=== PATIENT | female | born 1965 | race Caucasian/White ===

== ENCOUNTER 2020-12-14 13:19 | Emergency (ER) | payer MEDICARE ==
[~2020-12-14 13:19] MED LIST: Iopamidol-370 76% 500 ML 1 ML ONE
[2020-12-14 14:06] LABS: #Eosinphils 0.3 thou/uL (0.0-0.7); #Lymphocytes 2.1 thou/uL (1.20-3.40); #Monocytes 0.6 thou/uL (0.11-0.59); #Neutrophils 12.7 thou/uL (1.40-6.50); %Basophils 0.1 % (0.0-1.0); %Eosinophils 1.9 % (0.0-10.0); %Lymphocytes 13.6 % (21.0-51.0); %Monocytes 3.9 % (0.0-10.0); %Neutrophils 80.5 % (42.0-75.0); Hemoglobin 14.5 g/dL (12.0-16.0); Mean Corpuscular HGB CONC 33.6 g/dL (32.0-36.0); Mean Corpuscular Hemoglobin 31.8 pg (27.0-31.0); Mean Corpuscular Volume 94.9 fL (78.0-98.0); Platelet Count 301 thou/uL (130-400); RBC Distribution Width 13.6 % (11.5-14.5); Red Blood Cell (RBC) Count 4.54 mill/uL (4.20-5.40); White Blood Cell (WBC) Count 15.8 thou/uL (4.8-10.8)
[2020-12-14 14:24] LABS: Anion Gap 14 mmol/L (10-20); BUN (Urea Nitrogen) 13 mg/dL (9.8-20.1); Calc. Creatinine Clearance 0 mL/min (70-130); Calcium 9.3 mg/dL (7.8-10.44); Carbon Dioxide 24 mmol/L (22-29); Chloride 106 mmol/L (98-107); Glucose 164 mg/dL (70-105); Potassium 4.1 mmol/L (3.5-5.1); Sodium 140 mmol/L (136-145)
[2020-12-14 15:53] LABS: Bacteria/HPF None Seen HPF (None Seen); Bilirubin Negative (Negative); Blood, Urine Negative (Negative); Clarity Clear (Clear); Glucose, Urine (Dipstick) Normal (Negative); Ketone, Urine 10 mg/dL (Negative); Leukocyte 25 Leu/uL (Negative); Nitrite Negative (Negative); Pregnancy Test - Urine (BHCG) Negative (Negative); Pregu Control Background? CLEAR/WHITE (CLR/WHITE); Pregu Control Bar Appear? YES (CONTROL BAR); Protein, Urine (Dipstick) 10 mg/dL (Neg-Trace); RBC/HPF 0-3 HPF (0-3); Specific Gravity 1.021 (1.002-1.036); Specific Gravity, Urine 1.021 (1.002-1.036); Squamous Epithelial 0-3 HPF (0-3); Urobilinogen Normal mg/dL (Less than 2); pH, Urine 5.5 (5.0-9.0)
[2020-12-14] MEDS ORDERED: Morphine 4 MG/ML VIAL ONE (16:30)
[2020-12-14] MEDS ORDERED: Ciprofloxacin 500 MG TAB ONE (16:31)
[2020-12-14] MEDS ORDERED: Ketorolac Tromethamine 30 MG/ML VIAL ONE (16:31)
[2020-12-14] MEDS ORDERED: metroNIDAZOLE 500 MG/100 ML BAG ONE (16:31)
== END 2020-12-14 18:02 | disposition home or self-care (01) ==
LOC: ERS 13:19
DX: N20.1 Calculus of ureter (principal); I50.9 Heart failure, unspecified; E11.9 Type 2 diabetes mellitus without complications; Z79.84 Long term (current) use of oral hypoglycemic drugs; Z79.899 Other long term (current) drug therapy
CPT/HCPCS: 36415; 74177; 80048; 81003; 81015; 81025; 83690; 85025; 96365; 96375; J1885; J2270; Q9967

== ENCOUNTER 2025-03-05 18:09 | Observation (INO) | payer MEDICARE ==
[2025-03-05 18:51] VITALS: BMI 46.0
[2025-03-05] MEDS ORDERED: Dextrose 50% Abboject 50 ML SYRINGE SLOW IVP PRN (19:06)
[2025-03-05] MEDS ORDERED: Glucagon 1 MG/ML KIT IM PRN (19:06)
[2025-03-05] MEDS ORDERED: Nitroglycerin 0.4 MG TAB 1 EACH SL PRN (19:41)
[2025-03-05] MEDS: Sacubitril 49 MG/Valsartan 51 MG TABLET PO SCH (21:07)
[2025-03-05] MEDS: Carvedilol 6.25 MG TAB PO SCH (21:08)
[2025-03-05 21:36] LABS: Hematocrit 40.7 % (36.0-47.0); Hemoglobin 13.0 g/dL (12.0-16.0); Platelet Count 291 10x3/uL (130-400)
[2025-03-05] MEDS: Heparin 10,000 UNITS/ 10 ML VIAL SLOW IVP SCH (22:16)
[2025-03-06 04:36] LABS: #Basophils 0.05 10x3/uL (0.0-0.2); #Eosinophils 0.33 10x3/uL (0.0-0.7); #Monocytes 0.65 10x3/uL (0.11-0.59); #Neutrophils 5.84 10x3/uL (1.40-6.50); %Basophils 0.5 % (0.0-1.0); %Eosinophils 3.2 % (0.0-10.0); %Lymphocytes 32.7 % (21.0-51.0); %Monocytes 6.3 % (0.0-10.0); %Neutrophils 57.0 % (42.0-75.0); Hematocrit 39.7 % (36.0-47.0); Hemoglobin 12.7 g/dL (12.0-16.0); Mean Corpuscular Hemoglobin 32.0 pg (27.0-31.0); Mean Corpuscular Volume 100.0 fL (78.0-98.0); Platelet Count 274 10x3/uL (130-400); Red Blood Cell (RBC) Count 3.97 mill/uL (4.20-5.40); White Blood Cell (WBC) Count 10.26 10x3/uL (4.8-10.8)
[2025-03-06 04:55] LABS: ALT (SGPT) 15 U/L (Less than 34); AST (SGOT) 22 U/L (11-34); Albumin 3.4 g/dL (3.1-4.5); Alkaline Phosphatase 83 U/L (40-110); Anion Gap 16 mmol/L (10-20); BUN (Urea Nitrogen) 14 mg/dL (9.8-20.1); Bilirubin, Total 0.4 mg/dL (0.3-1.2); Calc. Creatinine Clearance 109 mL/min (70-130); Calcium 9.0 mg/dL (7.8-10.44); Carbon Dioxide 26 mmol/L (22-29); Cardiac Risk 4.8 (Less than 4.5); Chloride 103 mmol/L (98-107); Cholesterol 188 mg/dl (< 200 Desired); Globulin 3.0 g/dL (2.4-3.5); Glucose 280 mg/dL (70-105); HDL Cholesterol 39 mg/dL (>60 Neg Risk); Potassium 3.9 mmol/L (3.5-5.1); Sodium 141 mmol/L (136-145); Triglycerides 432 mg/dL (Less than 150)
[2025-03-06] MEDS: Aspirin 325 MG TAB PO SCH (08:38)
[2025-03-06] MEDS: Rosuvastatin 20 MG TAB PO SCH (08:38)
[2025-03-06] MEDS: Ezetimibe 10 MG TAB PO SCH (08:38)
[2025-03-06] MEDS: Pantoprazole 40 MG DR.TAB PO SCH (08:38)
[2025-03-06] MEDS ORDERED: Communication Order-Pharmacy FS SCH (10:15)
[2025-03-06] MEDS ORDERED: Adenosine 6 mg (2 mL) VIAL ONE (10:51)
[2025-03-06] MEDS ORDERED: PHENYLEPHRINE-NS 100 MCG/ML 10 ML SYRINGE ONE (10:52)
[2025-03-06] MEDS ORDERED: EPINEPHrine 1 MG/10 ML Abboject SYRINGE ONE (10:52)
[2025-03-06] MEDS ORDERED: Nitroglycerin 50 MG/250 ML BOT 0 ML ONE (10:52)
[2025-03-06] MEDS ORDERED: Lidocaine 1% (PF) 30 ML VIAL ONE (10:54)
[2025-03-06] MEDS ORDERED: Furosemide 20 MG TAB PO PRN (11:24)
[2025-03-06] MEDS ORDERED: Iopamidol 370 76% 100 ML VIAL ONE (11:34)
[2025-03-06] MEDS ORDERED: Furosemide 40 MG in Sodium Chloride 0.9% 90 ML IVPB SCH (14:00)
[2025-03-06 14:48] LABS: Magnesium 2.1 mg/dL (1.6-2.6)
[2025-03-06 15:32] LABS: PTT Greater than 250.0 sec (22.9-36.1)
[2025-03-06] MEDS: Furosemide 40 MG (4 mL) VIAL SLOW IVP SCH (15:32)
[2025-03-06] MEDS: Acetaminophen 500 MG TAB PO PRN (17:20)
[2025-03-07] VITALS: BP 107/52; TEMP 97.6
[2025-03-09] MEDS ORDERED: FLU (Fluarix Triv) 25-26 (6MOS UP)/PF 45 MCG/0.5 ML Syringe IM ONE (09:00)
== END 2025-03-07 00:20 | disposition short-term general hospital (02) ==
LOC: 2NO 18:44 → INTOOBSV 18:44
PROVIDERS: ADMIT Student in an Organized Health Care Education/Training Program; ATTEND Student in an Organized Health Care Education/Training Program
PROC: 4A023N7 Measurement of Cardiac Sampling and Pressure, Left Heart, Percutaneous Approach (ICD-10-PCS; principal; 2025-03-06)
DX: I21.4 Non-ST elevation (NSTEMI) myocardial infarction (principal); I11.0 Hypertensive heart disease with heart failure; I50.20 Unspecified systolic (congestive) heart failure; I25.10 Atherosclerotic heart disease of native coronary artery without angina pectoris; I25.5 Ischemic cardiomyopathy; E78.1 Pure hyperglyceridemia; E11.9 Type 2 diabetes mellitus without complications; E78.5 Hyperlipidemia, unspecified; E66.9 Obesity, unspecified; K21.9 Gastro-esophageal reflux disease without esophagitis; G47.33 Obstructive sleep apnea (adult) (pediatric); Z68.42 Body mass index [BMI] 45.0-49.9, adult; Z95.1 Presence of aortocoronary bypass graft; Z95.810 Presence of automatic (implantable) cardiac defibrillator; Z90.49 Acquired absence of other specified parts of digestive tract; Z90.710 Acquired absence of both cervix and uterus; Z91.040 Latex allergy status; Z88.0 Allergy status to penicillin; Z79.4 Long term (current) use of insulin; Z79.82 Long term (current) use of aspirin; Z79.02 Long term (current) use of antithrombotics/antiplatelets; Z79.899 Other long term (current) drug therapy
CPT/HCPCS: 80053; 80061; 82962 ×2; 83036; 83735; 84443; 84484 ×2; 85014; 85018; 85025; 85049; 85730 ×3; 93005 ×2; 93459; 96374; 96375; 96376; C1760; C1769; C1894 ×3; G0378 ×2; J1644 ×2; J1815; J1940; J2003; J2250; J3010; 36415; 36416; 93010; 99152; 99153; J0153; J0165; J0461; Q9967